=== PATIENT | female | born 1955 | race Caucasian/White ===

== ENCOUNTER 2023-06-04 06:45 | Day surgery (SDC) | payer MEDICARE, OTHER ==
[2023-05-27 09:36] VITALS: BP 154/93
[~2023-06-04] VITALS: Ht 165.1 cm; Wt 80.0 kg
--- NOTE | ~2023-06-04 | OR ---
[address] [address] [place] DATE OF OPERATION: 06/04/2023 SURGEON: Cindy Lo DO PREOPERATIVE DIAGNOSES: 1. Postmenopausal bleeding. 2. Thickened endometrium. 3. Submucosal and intracervical fibroids. POSTOPERATIVE DIAGNOSES: 1. Postmenopausal bleeding. 2. Thickened endometrium. 3. Submucosal and intracervical fibroids. ANESTHESIA: MAC. ESTIMATED BLOOD LOSS: 10 mL. FLUID DEFICIT: 100 mL. PROCEDURES PERFORMED: 1. Hysteroscopic myomectomy. 2. Dilation and curettage. 3. Pap under anesthesia. COMPLICATIONS: None. FINDINGS: Normal external genitalia with normal clitoris, urethral meatus, bilateral Mosses's, and Bartholin glands. Postmenopausal vagina and normal-appearing cervix. On hysteroscopy, large intracervical fibroids and submucosal fibroids with thickened endometrium. Unable to completely excise submucosal and intracervical fibroids. INDICATIONS: Ms. Parker is a very pleasant 67-year-old female with postmenopausal bleeding and fibroids on ultrasound. Recommended hysteroscopy, D and C and Pap under anesthesia. PATIENT NAME: CHRISTIANO PARKER OPERATIVE REPORT DATE OF : 53 REPORT #: [id number] PHYSICIAN: CINDY LO ([place]) PCP: FIFI DOMINGUEZ MD REPORT IS CONFIDENTIAL AND NOT TO BE RELEASED WITHOUT AUTHORIZATION [address] [address] [place] Risks, benefits, and alternatives were discussed in detail with the patient. The patient understands and wished to proceed with the procedure. DESCRIPTION OF PROCEDURE: The patient was brought to the OR where a time-out was performed to confirm correct patient and correct procedure. MAC anesthesia was adequately established. The patient was prepped and draped in the dorsal lithotomy position with her feet in Yellofin stirrups. ICPs were on and running. No preoperative antibiotics were indicated. The bladder was drained. A speculum was used to perform a Pap smear and then the patient was prepped and draped. A weighted speculum was placed in the vagina and the anterior lip of the cervix was grasped with an Allis clamp. The cervix was serially dilated using Hegar dilators to a #7. An operative hysteroscope was then placed into the cervical os and advanced under direct visualization into the uterine cavity. A large submucosal fibroid inside the uterus and a large intracervical fibroid was noted. MyoSure Reach device was selected and the submucosal fibroid was shaved at least equal to the myometrium and circumferential curettage of the endometrium was performed. A myomectomy of the intracervical fibroid was performed again to the level of the cervical stroma. The patient will require a hysterectomy and definitive treatment with hysteroscopic myomectomy was not attempted. The camera was removed and fluid deficit noted to be 800 mL. The cervix was hemostatic and the patient was taken to PACU in good and stable condition. Sponge, needle, and instrument counts correct x2 at the end of the procedure. DO NICCI Haro/GAIL /[id number] Copies: ~ PATIENT NAME: CHRISTIANO PARKER JO OPERATIVE REPORT DATE OF : 53 REPORT #: [id number] PHYSICIAN: CINDY LO ([place]) PCP: FIFI DOMINGUEZ MD REPORT IS CONFIDENTIAL AND NOT TO BE RELEASED WITHOUT AUTHORIZATION
[~2023-06-04 06:45] MED LIST: BENZONATATE100 MG PO; BYSTOLIC5 MG PO; CALCIUM + VITA1 EAC2 PO; CLOBETASOL 0.0560 G1 TOP; COZAAR25 MG PO; LEXAPRO5 MG PO; MICROZIDE12.5 MG PO; OMEPRAZOLE20 MG PO; PRAVASTATIN SOD40 MG PO; RESTASIS1 DROP OD; SINGULAIR10 MG PO; VENTOLIN HFA18 GM INH; ZOLOFT25 MG PO
[2023-06-04 06:58] VITALS: BP 147/86
[2023-06-04] MEDS ORDERED: FLONASE ALLERG9.9 ML NAS (07:02)
[2023-06-04] MEDS ORDERED: HYDROCHLOROTH12.5 MG PO (07:02)
--- NOTE | 2023-06-04 07:33 | NUR ---
DS ROUNDS. 15 MINUTES. NORMALIZED PT EXPERIENCE; ENCOURAGE SELF CARE; PROVIDED PRAYER. PT EXPRESSED APPRECIATION.
--- NOTE | 2023-06-04 10:33 | NUR ---
06/04/23 1033 Ana Vegas PT TO PACU AWAKE ABLE TO ANSWER QUETIONS, REPORTS PAIN 3/10 AND TOLERABLE.
[2023-06-04 11:07] VITALS: BP 125/74
--- NOTE | 2023-06-07 12:06 | PATH ---
[facility] [address] [facility] [place], [place] [address] Signed ORDERING PHYSICIAN: Francisco Lo DO PATIENT NAME: CHRISTIANO PARKER GENDER: F : 1955 Prior History: DATE CASE NUM ADEQUACY DIAGNOSIS HPV RESULTS PHYSICIAN The 5 most recent reports are included. This history does not include results of pap smears performed at another laboratory. SPECIMEN(S): Cervical/ Endocervical CLINICAL HISTORY: Routine Pap Smear CYTOLOGIC INTERPRETATION: Negative for intraepithelial lesion or malignancy. MOLECULAR PATHOLOGY RESULTS: HPV High Risk - Negative TECHNICAL NOTES: To improve disease detection, this slide is screened using automated intelligence technology. This specimen was received in a vial of liquid-based fixative and was processed using thin layer Pap technology. SPECIMEN ADEQUACY: Satisfactory for evaluation. Endocervical and/or metaplastic cells present. ADDITIONAL NOTES: The Pap smear is a screening test designed to aid in the detection of premalignant and malignant conditions of the uterine cervix. It is not a diagnostic procedure and should not be used as the sole means of detecting cervical cancer. Both false-positive and false-negative reports do occur. ADDITIONAL NOTES.: The Twitt2go Aptima HPV assay is a nucleic acid amplification test for the qualitative detection of E6/E7 viral messenger RNA (mRNA) from HPV types 16, 18, 31, 33, 35, 39, 45, 51, 52, 56, 58, 59, 66, and 68. Refer to the test directory for assay limitations. PATIENT NAME: CHRISTIANO PARKRE PATHOLOGY DATE OF : 53 REPORT #: [id number] PHYSICIAN: [facility] PCP: FIFI DOMINGUEZ MD REPORT IS CONFIDENTIAL AND NOT TO BE RELEASED WITHOUT AUTHORIZATION [address] [place] [address] Signed ThinPrep Pap collections are FDA-approved. SurePath Pap collections are not FDA-approved but performance characteristics were determined at the performing laboratory. [facility] is certified under CLIA as qualified to perform high complexity testing. PERFORMING LABORATORY: Technical preparation was performed by [facility], [address] [place] [address] (CLIA#: [id number]). PERFORMING LABORATORY.: Molecular testing was performed by [facility], [address] [place] [address], , CLIA #: [id number]. Diagnostician: Jaden BRITT ([facility]) Geneticist Electronically Signed 06/07/2023 Copies: ~ PATIENT NAME: CHRISTIANO PARKER PATHOLOGY DATE OF : 53 REPORT #: [id number] PHYSICIAN: [facility] PCP: ALBERTO,FIFI MD REPORT IS CONFIDENTIAL AND NOT TO BE RELEASED WITHOUT AUTHORIZATION
--- NOTE | 2023-06-07 16:49 | PATH ---
[facility] [address] [place], [place] [address] Signed SPECIMEN(S): A ENDOMETRIAL CURETTINGS FIBROIDS SPECIMEN SOURCE: A. ENDOMETRIAL CURETTINGS FIBROIDS CLINICAL HISTORY: Cervical cancer screening; postmenopausal bleeding, endometrial thickening, intramural leiomyoma of uterus. Z12.4 (encounter for screening for malignant neoplasm of cervix) N95.0 (postmenopausal bleeding) FINAL PATHOLOGIC DIAGNOSIS: Endometrial curettings and fibroids: - Weakly proliferative endometrium with polypoid features, negative for hyperplasia or atypia. - Fragments of myometrium with interspersed bland calretinin positive epithelioid and slightly spindled cells (see comment). - Negative for atypical features. COMMENT: The presence of bland epithelioid and spindled calretinin positive cells forming vascular-like and cystic spaces in a background of smooth muscle is consistent with Adenomatoid tumor. Clinical correlation is requested. JVR:clv MICROSCOPIC EXAMINATION: Histologic sections of all submitted blocks are examined by light microscopy. These findings, together with the gross examination, support the pathologic diagnosis. Immunostains were performed with appropriate controls on block A2 and show the following: - Cytokeratin AE1/AE3: Positive in epithelium. - Calretinin: Positive in areas of concern. - Desmin: Positive in areas of concern. DS:clv GROSS DESCRIPTION: The specimen, labeled and designated "Dejan Parker" and designated on the requisition "endometrial curettings and fibroids," is received in formalin and consists of multiple fragments of white-corona soft PATIENT NAME: CHRISTIANO PARKER JO PATHOLOGY DATE OF : 53 REPORT #: [id number] PHYSICIAN: WINDY FALCON PCP: FIFI DOMINGUEZ MD REPORT IS CONFIDENTIAL AND NOT TO BE RELEASED WITHOUT AUTHORIZATION [facility] [address] [place], [place] [address] Signed tissue (5.5 x 2.5 x 0.5 cm in aggregate). The specimen is submitted entirely in cassette A1-A2. AC (under the direct supervision of a pathologist) The Gross Description was prepared using a voice recognition system. The report was reviewed for accuracy; however, sound-alike word errors, addition and/or deletions may occur. If there is any question about this report, please contact Client Services. ADDITIONAL NOTES: Immunohistochemical and/or in situ hybridization studies if performed in this case included appropriate positive controls that reacted as expected. This test was developed and its performance characteristics determined by [facility]. It has not been cleared or approved by the U.S. Food and Drug Administration. The FDA has determined that such clearance or approval is not necessary. This test is used for clinical purposes. It should not be regarded as investigational or for research. [facility] is certified under the Clinical Laboratory Improvement Amendments of 1988 (CLIA) as qualified to perform high complexity clinical laboratory testing. PERFORMING LABORATORY: Technical component was performed by [facility], [address] [place] [id number] (CLIA# [id number]). Professional interpretation was performed by [facility], [address] [place] [id number] (CLIA#: [id number]). Diagnostician: Yang Barnett MD Pathologist Electronically Signed 06/07/2023 Copies: ~ PATIENT NAME: CHRISTIANO PARKER PATHOLOGY DATE OF : 53 REPORT #: [id number] PHYSICIAN: [facility] PCP: FIFI DOMINGUEZ MD REPORT IS CONFIDENTIAL AND NOT TO BE RELEASED WITHOUT AUTHORIZATION
== END 2023-06-04 11:25 | disposition home or self-care (01) ==
LOC: OPS 06:45 → DS 06:45 → OPS 07:30
PROVIDERS: ATTEND Obstetrics & Gynecology
PROC: 0UDB8ZZ Extraction of Endometrium, Via Natural or Artificial Opening Endoscopic (ICD-10-PCS; principal; 2023-06-04 10:20)
DX: N95.0 Postmenopausal bleeding (principal); N85.8 Other specified noninflammatory disorders of uterus; E11.9 Type 2 diabetes mellitus without complications; I10 Essential (primary) hypertension; M19.049 Primary osteoarthritis, unspecified hand; K21.9 Gastro-esophageal reflux disease without esophagitis; E83.110 Hereditary hemochromatosis
CPT/HCPCS: 00952; 88112; 88305; 88341; 88342; J0131; J1885; J2001; J2405; J2704; J3010; J7121

== ENCOUNTER 2023-07-03 05:35 | Day surgery (SDC) | payer MEDICARE, OTHER ==
[2023-06-26 14:38] VITALS: BP 128/88
[2023-07-03] VITALS (7 sets, daily range): BP systolic 121–180; BP diastolic 59–87
[~2023-07-03] VITALS: Ht 165.1 cm; Wt 80.5 kg
--- NOTE | ~2023-07-03 | OR ---
[address] [address] [place] DATE OF OPERATION: 07/03/2023 SURGEON: Cindy Lo DO PREOPERATIVE DIAGNOSES: 1. Postmenopausal bleeding. 2. Fibroid uterus. 3. Stress urinary incontinence. POSTOPERATIVE DIAGNOSES: 1. Postmenopausal bleeding. 2. Fibroid uterus. 3. Stress urinary incontinence. PROCEDURES PERFORMED: 1. Total laparoscopic hysterectomy. 2. Bilateral salpingo-oophorectomy. 3. Mid urethral sling with TVT-Exact. CEMENTER HELPER: Tiffany Abarca MD ANESTHESIA: General. ESTIMATED BLOOD LOSS: 250 mL. SPECIMEN: Uterus, cervix, bilateral tubes and ovaries. DRAINS: David to gravity. IMPLANTS: TVT-Exact mid urethral sling. PACKING: Kerlix impregnated with Estrace. PATIENT NAME: CHRISTIANO PARKER OPERATIVE REPORT DATE OF : 53 REPORT #: [id number] PHYSICIAN: CINDY LO ([place]) PCP: FIFI DOMINGUEZ MD REPORT IS CONFIDENTIAL AND NOT TO BE RELEASED WITHOUT AUTHORIZATION [address] [address] [place] FINDINGS: Enlarged multi-fibroid uterus with bilateral normal tubes and ovaries. On cystoscopy, normal bladder with bilateral ureteral jets. COMPLICATIONS: None. INDICATIONS: Ms. Parker is a very pleasant 68-year-old female with a history of postmenopausal bleeding. An ultrasound was performed demonstrating an enlarged 12 cm uterus with multiple fibroids with thickened endometrium of 9 mm with intracavitary fibroid noted. Hysteroscopy D and C was performed showing weakly proliferative endometrium and benign adenomatoid tumor as well as benign fibroids. She had normal PAP following D and C. Hysteroscopy, D and C was performed. There was unable to completely resect submucosal fibroids. Decision was made to proceed with definitive treatment with total laparoscopic hysterectomy, bilateral salpingo-oophorectomy. The patient also with long history of stress urinary incontinence and requests definitive treatment with mid urethral sling. She has failed conservative management with Kegel's and physical therapy. Medical history is complicated by hemochromatosis and type 2 diabetes is well-controlled, the last A1c of 6.2. DESCRIPTION OF PROCEDURE: The patient was taken to the OR where a time-out was performed to confirm correct patient and correct procedure. General anesthesia was adequately established. The patient was prepped and draped in dorsal lithotomy position with feet in Yellofin stirrups. ICPs were on running and the patient received Ancef 2 g preoperatively as well as heparin 5000 units. A David catheter was inserted. Weighted speculum was placed in vagina and the anterior lip of the cervix was grasped with Allis clamp. The cervix was gently dilated using Hegar dilators and a VCare uterine manipulator was placed without difficulty. The surgeon's gloves were changed and attention was turned to the abdomen. Approximately 2 cm below the umbilicus, the skin was infiltrated with 0.25% Marcaine with epinephrine and a curvilinear incision approximately 3-4 cm was made. The fascia was grasped with hemostats, elevated, and entered sharply using Metzenbaum scissors. Stay sutures of 0 Vicryl placed in the superior and inferior edges of the fascial incision. The peritoneum was then entered bluntly. A Daksha operative port was placed and pneumoperitoneum was established without difficulty. A 5 mm assist port was then placed in the left lower quadrant under direct visualization and an 8 mm expanding port was placed in the right lower quadrant under direct visualization. Survey of the abdomen and pelvis was performed demonstrating somewhat fatty-appearing liver consistent with her hemochromatosis and normal gallbladder. The pelvis demonstrated enlarged multi-fibroid uterus with normal tubes and ovaries bilaterally. Attention was turned to the hysterectomy. The left infundibulopelvic ligament was PATIENT NAME: CHRISTIANO PARKER OPERATIVE REPORT DATE OF : 53 REPORT #: [id number] PHYSICIAN: CINDY LO ([place]) PCP: FIFI DOMINGUEZ MD REPORT IS CONFIDENTIAL AND NOT TO BE RELEASED WITHOUT AUTHORIZATION [facility] [address] [place], [place] [address] Draft identified. The peritoneum just superior and lateral to this was grasped, tented and entered using LigaSure device. The IP was then isolated and fulgurated and divided with visualization of the ureter medial to this. Endoloop was then placed on the cut edge of the infundibulopelvic ligament. Dissection was then carried down to the round ligament, which was divided in the midline. Attention was turned to the right infundibulopelvic ligament and the right ureter was identified. The process was repeated with tenting of the peritoneum and isolation of the infundibulopelvic ligament with visualization of the ureter medial to this and fulguration division of the IP with excellent hemostasis. Endoloop was also applied to the cut end of the right infundibulopelvic ligament and the dissection was carried down to the round ligament, which was fulgurated divided in the midline. The leaves of the broad ligament were then divided. The anterior leaf of the broad ligament was divided from the midportion of the round to the superior edge of the vaginal cup. The peritoneum along the superior edge of the vaginal cup was then divided and pushed well below the vaginal cup. The posterior leaf of the broad ligament was divided from the midportion of the round ligament to the right uterosacral ligament and dissection was carried across the posterior edge of the peritoneum along the vaginal cup. The right uterine vessels were identified, fulgurated and divided with excellent hemostasis appreciated. The process was repeated on the left side with division of the leaves of the broad ligament, identification of the uterine vessels, and fulguration division of the uterine vessels with excellent hemostasis. Colpotomy was then performed using Sonicision device and the uterus, cervix, tubes, and ovaries were delivered through the hysterotomy and sent to Pathology for further evaluation. Pneumoperitoneum was reestablished by placing a wet lap inside of a glove and stuffing this gently inside the vagina. The pelvis was irrigated and found to be hemostatic. Colpotomy was then repaired using V-Loc suture with an Endostitch device with careful attention to incorporate the uterosacral ligament bilaterally and to incorporate the vaginal epithelium with each bite. Excellent hemostasis and apical support was appreciated. The pelvis was irrigated and found to be hemostatic. Pneumoperitoneum was reduced. Trocars were removed. Fascia of the infraumbilical incision was reapproximated using 0 Vicryl in a running nonlocked manner and skin was reapproximated using 4-0 Monocryl. Attention was turned back to the pelvis for mid urethral sling. The midportion of the pubic symphysis was identified and exit sites 2 cm lateral to this were marked just superior to the pubic symphysis. Retropubic hydrodissection was performed with approximately 30 mL of saline injected retropubic bilaterally. The mid urethra was located by palpating the David balloon at the bladder neck and identifying the urethral meatus. The vaginal epithelium overlying the mid urethra was infiltrated with 0.25% Marcaine with epinephrine, grasped with Allis clamps and entered sharply. The vaginal epithelium was then bluntly undermined using Metzenbaum scissors to the retropubic space. A rigid catheter guide was then inserted through the catheter and the bladder was displaced toward the right shoulder. The trocar shaft was then placed inside of the white trocar sheath. The dominant hand was used to hold the trocar handle and nondominant hand was used to place the tip of the catheter through the anterior vaginal PATIENT NAME: CHRISTIANO PARKER OPERATIVE REPORT DATE OF : 53 REPORT #: [id number] PHYSICIAN: CINDY LO ([place]) PCP: FIFI DOMINGUEZ MD REPORT IS CONFIDENTIAL AND NOT TO BE RELEASED WITHOUT AUTHORIZATION [facility] [address] [place], [place] [address] Draft wall just lateral to the suburethral incision. The tip of the trocar was gently inserted into the periurethral dissected space and then the urogenital diaphragm was gently penetrated. The hand was dropped, allowing for passage of the trocar tip just behind the pubic symphysis. The tip of the trocar was then guided along the posterior edge of the pubic symphysis and exited at the proposed previously marked exit site. The skin was nicked with a scalpel and the tip of the trocar was passed. The process was repeated on the right side with deflection of the bladder to the contralateral shoulder and gentle guidance of the trocar tip to and through the urogenital diaphragm and guiding the tip along the posterior edge of the pubic symphysis. The trocar tip was then brought through the previously marked exit site. The David catheter and rigid catheter guide were removed and cystoscopy was performed demonstrating an intact bladder with no perforation and bilateral ureteral jets confirming optimal placement of the trocars. The David catheter was reinserted. The trocar sheaths were then gently pulled upwards to bring the implant loosely under the mid urethra. A right angle forceps was used to ensure that the mid urethral sling was placed under no tension to stabilize the implant during sheath removal. The sheath was removed and the mid urethral sling was trimmed just below the epithelium and the epithelium was lifted to allow the ends of the mesh to fall below the skin. The skin was reapproximated using 4-0 Vicryl. The right angle was removed after ensuring the mid urethral sling was placed under no tension. A moderate amount of bleeding was noted and bimanual pressure was held. FloSeal was then applied to the dissection channel with excellent hemostasis appreciated. The vaginal epithelium was then reapproximated using 2-0 Vicryl in a running nonlocked manner. The David catheter was reinserted and the vagina was packed with Kerlix impregnated with Estrace. The patient was taken to PACU in good and stable condition. Sponge, needle, and instrument counts were correct x2 at the end of the procedure. Dr. Abarca was present and participated in all portions of the procedure. DO NICCI Haro/GAIL /[id number] Copies: PATIENT NAME: CHRISTIANO PARKER OPERATIVE REPORT DATE OF : 53 REPORT #: [id number] PHYSICIAN: CINDY LO) PCP: FIFI DOMINGUEZ MD REPORT IS CONFIDENTIAL AND NOT TO BE RELEASED WITHOUT AUTHORIZATION [address] [address] Draft ~ PATIENT NAME: CHRISTIANO PARKER OPERATIVE REPORT DATE OF : 53 REPORT #: [id number] PHYSICIAN: CINDY LO) PCP: FIFI DOMINGUEZ MD REPORT IS CONFIDENTIAL AND NOT TO BE RELEASED WITHOUT AUTHORIZATION
[~2023-07-03 05:35] MED LIST changes: +FLONASE ALLERG9.9 ML NAS; +HYDROCHLOROTH12.5 MG PO
[2023-07-03 06:33] LABS: ALBUMIN 3.9 g/dL (3.4-5.0); ALBUMIN/GLOBULIN RATIO 1.26 (1.1-2.4); ANION GAP 12.4 (7-21); BILIRUBIN, TOTAL 0.5 ng/dL (0.2-1.0); BUN/CREATININE RATIO 25.27 (6.0-28.6); CALCIUM 9.2 mg/dL (8.5-10.1); CREATININE, SERUM 0.91 mg/dL (0.55-1.02); POTASSIUM 3.4 mmol/L (3.5-5.1)
[2023-07-03 13:12] LABS: HEMATOCRIT 40.1 % (35.0-50.0); HEMOGLOBIN 13.6 g/dL (12.0-18.0); MCH 31.7 (27-36); MCHC 33.8 g/dl (30-36); MCV 93.8 fl (81-99); RBC 4.27 M/ul (4.3-5.7); RDW 12.4 (10.5-15.0)
[2023-07-03 18:02] LABS: HEMATOCRIT 40.9 % (35.0-50.0); HEMOGLOBIN 13.8 g/dL (12.0-18.0); MCH 31.8 (27-36); MCHC 33.9 g/dl (30-36); MCV 93.8 fl (81-99); RBC 4.36 M/ul (4.3-5.7); RDW 12.2 (10.5-15.0)
[2023-07-04 01:21] VITALS: BP 129/75
[2023-07-04 05:54] LABS: HEMATOCRIT 34.8 % (35.0-50.0); MCH 32.1 (27-36); MCHC 34.5 g/dl (30-36); RBC 3.74 M/ul (4.3-5.7); RDW 12.2 (10.5-15.0)
[2023-07-04 06:07] VITALS: BP 121/60
[2023-07-04] MEDS ORDERED: HYDROCHLOROTHIA25 MG PO (08:37)
[2023-07-04] MEDS ORDERED: CLOBETASOL PROP15 GM TOP (08:38)
[2023-07-04 09:10] VITALS: BP 124/63
[2023-07-04] MEDS ORDERED: MULTI VITAMIN1 EACH PO (09:49)
[2023-07-04] MEDS ORDERED: VITAMIN D325 MCG PO (09:50)
[2023-07-04] MEDS ORDERED: BENZONATATE100 MG PO (09:50)
[2023-07-04 13:01] VITALS: BP 125/60
[2023-07-04] MEDS ORDERED: PERCOCET 5-3251 EACH PO (13:08)
[2023-07-04] MEDS ORDERED: IBU800 MG PO (13:08)
--- NOTE | 2023-07-12 16:08 | PATH ---
[facility] [address], [place] [address] Signed SPECIMEN(S): A UTERUS, CERVIX, TUBES AND OVARIES SPECIMEN SOURCE: A. UTERUS, CERVIX, TUBES AND OVARIES CLINICAL HISTORY: Postmenopausal bleeding, PRICILA, intramural leiomyoma of uterus endometrial thickening on ultrasound FINAL PATHOLOGIC DIAGNOSIS: Uterus, cervix, tubes and ovaries: - Proliferative endometrium, negative for atypical features or malignancy. - Myometrial adenomatoid tumor with benign features. - Benign myometrial leiomyomas. - Benign bilateral ovaries and oviducts. - Benign endo- and ectocervix. COMMENT: As part of the [employer] [employer] Program, the case has been reviewed by a second pathologist. JVR:CHUCKYF:amauri MICROSCOPIC EXAMINATION: Histologic sections of all submitted blocks are examined by light microscopy. These findings, together with the gross examination, support the pathologic diagnosis. A P53 immunostain performed on block A4 (appropriate controls noted) shows scattered nuclear staining in the epithelium of concern. A calretinin immunostain is performed with appropriate controls on block A5 and highlights the cells of concern. GROSS DESCRIPTION: The specimen, labeled and designated "Koffi, M, " and designated on the requisition "cervix with bilateral tubes ovaries, uterus," is received in formalin and consists of 219 gram uterus and cervix with bilateral adnexa. The uterus is 4.0 x 4.5 x 9.6 cm (cornu-cornu x anterior-posterior x fundus-ectocervix). The serosal surface is violaceous and smooth with a area of distention that is 5.5 x 5.5 x 4.6 cm. The ectocervical mucosa is pink and focally congested. Serial sectioning of the cervix fails to demonstrate any gross abnormalities. The triangular endometrial cavity is lined by a pink PATIENT NAME: CHRISTIANO PARKER PATHOLOGY DATE OF : 53 REPORT #: [id number] PHYSICIAN: [facility] PCP: FIFI DOMINGUEZ MD REPORT IS CONFIDENTIAL AND NOT TO BE RELEASED WITHOUT AUTHORIZATION [facility] [address], [place] [address] Signed smooth and focally congested endometrium that has an average thickness of 0.2 cm. Sectioning through the uterus reveals multiple white-corona to pink well-circumscribed intramural nodules that measure up to 5.8 x 4.5 x 4.5 cm. The left tubo-ovarian complex has a 2.5 x 0.6 cm fallopian tube with delicate fimbriae. The serosa is violaceous and smooth. Cut sections reveal a pinpoint lumen. The 3.6 x 1.9 x 1.2 cm ovary has a white-corona cerebriform external surface. Serial sectioning reveals a pink-white variegated ovarian parenchyma. The right tubo-ovarian complex has a 2.2 x 0.6 cm fallopian tube with delicate fimbriae. The serosa is violaceous and smooth. Cut sections reveal a pinpoint lumen. The 3.4 x 1.6 x 1.0 cm ovary has a white-corona cerebriform external surface. Serial sectioning reveals a pink-white variegated ovarian parenchyma. [employer] Systems Developer sections are submitted in seven cassettes. Cassette Summary: (A1) left tubo-ovarian complex (A2) right tubo-ovarian complex (A3) cervix (A4) uterine wall (A5) smaller intramural nodules and nodule within lower uterine segment (A6-A7) largest intramural nodule (A8-A9) additional sections of endometrium FB (under the direct supervision of a pathologist) Additional tissue is submitted in cassettes A8-A9 per Dr. Barnett's request. FB The Gross Description was prepared using a voice recognition system. The report was reviewed for accuracy; however, sound-alike word errors, addition and/or deletions may occur. If there is any question about this report, please contact Client Services. ADDITIONAL NOTES: Immunohistochemical and/or in situ hybridization studies if performed in this case included appropriate positive controls that reacted as expected. This test was developed and its performance characteristics determined by [employer]. It has not been cleared or approved by the U.S. Food and Drug Administration. The FDA has determined that such clearance or approval is not necessary. This test is used for clinical purposes. It should not be regarded as investigational or for research. [employer] is certified under the PATIENT NAME: CHRISTIANO PARKER PATHOLOGY DATE OF : 53 REPORT #: [id number] PHYSICIAN: [facility] PCP: FIFI DOMINGUEZ MD REPORT IS CONFIDENTIAL AND NOT TO BE RELEASED WITHOUT AUTHORIZATION [address] [address] Signed Clinical Laboratory Improvement Amendments of 1988 (CLIA) as qualified to perform high complexity clinical laboratory testing. PERFORMING LABORATORY: Technical component was performed by [employer], [address] [place] [id number] (CLIA# [id number]). Diagnostician: Yang Barnett MD Pathologist Electronically Signed 07/12/2023 Copies: ~ PATIENT NAME: CHRISTIANO PARKER JO PATHOLOGY DATE OF : 53 REPORT #: [id number] PHYSICIAN: [facility] PCP: FIFI DOMINGUEZ MD REPORT IS CONFIDENTIAL AND NOT TO BE RELEASED WITHOUT AUTHORIZATION
== END 2023-07-04 13:37 | disposition home or self-care (01) ==
LOC: OPS 05:35 → DS 05:35 → OPS 07:30 → DS 07:30 → MS 14:30 → OPS 07-04 13:37
PROVIDERS: ATTEND Obstetrics & Gynecology
PROC: 0TSD4ZZ Reposition Urethra, Percutaneous Endoscopic Approach (ICD-10-PCS; 2023-07-03)
PROC: 0UT94ZZ Resection of Uterus, Percutaneous Endoscopic Approach (ICD-10-PCS; principal; 2023-07-03 07:30)
PROC: 0UT74ZZ Resection of Bilateral Fallopian Tubes, Percutaneous Endoscopic Approach (ICD-10-PCS; 2023-07-03 07:30)
PROC: 0UT24ZZ Resection of Bilateral Ovaries, Percutaneous Endoscopic Approach (ICD-10-PCS; 2023-07-03 07:30)
DX: D25.9 Leiomyoma of uterus, unspecified (principal); N93.9 Abnormal uterine and vaginal bleeding, unspecified; N39.3 Stress incontinence (female) (male)
CPT/HCPCS: 00952; 36415; 80053; 85027; 88307; 88309; 88341; 88342; A9270; C1771; J0131; J0690; J1100; J1644; J2001; J2405; J2704; J3010; J3475; J3490; J7121